=== PATIENT | female | born 1945 | race African-American/Black ===

== ENCOUNTER 2018-09-24 08:09 | Emergency (ER) | payer MEDICARE, BC ==
[~2018-09-24] VITALS: Ht 162.6 cm; Wt 82.0 kg
[2018-09-24] MEDS ORDERED: KETOROLAC 30MG/ML VIAL IV STA (08:27)
[2018-09-24 09:05] LABS: BASOPHILS % 1.1 % (0.0-2.0); EOSINOPHILS % 1.1 % (0.0-5.0); HEMATOCRIT. 40.9 % (36.0-48.0); HEMOGLOBIN. 13.3 g/dL (12.0-16.0); LYMPHOCYTES % 24.6 % (20.0-50.0); MEAN CORPUSCULAR HEMOGLOBIN 26.5 pg (28.0-32.0); MEAN CORPUSCULAR VOLUME 81.3 fL (81.0-99.0); MEAN PLATELET VOLUME 8.7 fl (7.4-10.4); MONOCYTES % 6.7 % (2.0-8.0); NEUTROPHILS % 66.5 % (40.0-76.0); PLATELET 230 x1000/uL (130-400); RED BLOOD CELL COUNT 5.03 mill/uL (4.2-5.4); RED CELL DISTRIBUTION WIDTH 16.5 % (11.6-14.6)
[2018-09-24 09:20] LABS: CHLORIDE 107 mEq/L (98-107)
[2018-09-24 09:22] LABS: CLARITY URINE CLEAR (CLEAR); COLOR URINE YELLOW (YELLOW); KETONES URINE NEGATIVE (NEGATIVE); LEUKOCYTE ESTERASE URINE 2+ (NEGATIVE); NITRITE URINE NEGATIVE (NEGATIVE); OCCULT BLOOD URINE NEGATIVE (NEGATIVE); PROTEIN URINE NEGATIVE (NEGATIVE); SPECIFIC GRAVITY URINE 1.017 (1.005-1.030); UROBILINOGEN URINE 0.2 E.U./dL (0.2-1.0)
[2018-09-24 09:56] LABS: PROTHROMBIN TIME 10.5 sec (9.6-11.0)
[2018-09-24 10:10] VITALS: BP 133/64
== END 2018-09-24 10:37 | disposition home or self-care (01) ==
LOC: ER 08:09
DX: N39.0 Urinary tract infection, site not specified (principal); I10 Essential (primary) hypertension; H40.9 Unspecified glaucoma; I69.351 Hemiplegia and hemiparesis following cerebral infarction affecting right dominant side
CPT/HCPCS: 36415; 74176; 80053; 81003; 83690; 85025; 85610; 96374; 99284; J1885

== ENCOUNTER 2022-12-04 17:25 | Emergency (ER) | payer OTHER ==
[~2022-12-04] VITALS: Ht 165.1 cm; Wt 82.0 kg
[2022-12-04 17:31] VITALS: O2SAT 99
[2022-12-04] MEDS ORDERED: KETOROLAC 30MG/ML VIAL IV STA (17:51)
[2022-12-04] MEDS ORDERED: KETOROLAC 30MG/ML VIAL IV NR (17:51)
[2022-12-04 18:18] LABS: BASOPHILS % 0.8 % (0.0-2.0); EOSINOPHILS % 1.8 % (0.0-5.0); LYMPHOCYTES % 24.5 % (20.0-50.0); MEAN CORPUSCULAR HEMOGLOBIN 26.9 pg (28.0-32.0); MEAN CORPUSCULAR HGB CONC 32.3 g/dL (31.0-37.0); MEAN CORPUSCULAR VOLUME 83.4 fL (81.0-99.0); MEAN PLATELET VOLUME 8.4 fl (7.4-10.4); MONOCYTES % 9.2 % (2.0-8.0); NEUTROPHILS % 63.7 % (40.0-76.0); PLATELET 217 x1000/uL (130-400); RED BLOOD CELL COUNT 4.08 mill/uL (4.2-5.4); WHITE BLOOD COUNT 9.3 x1000/uL (4.5-11.0)
[2022-12-04 18:20] LABS: DIFFERENTIAL COMMENT 1
[2022-12-04 18:27] LABS: INR 1.2; PROTHROMBIN TIME 12.4 sec (9.6-11.0)
[2022-12-04 18:41] LABS: CHLORIDE 107 mEq/L (98-107); INDEX HEMOLYSI 1 (1-3); INDEX ICTERIC 1 (1-4); INDEX LIPEMIC 1 (1-3); SODIUM 137 mEq/L (136-145)
[2022-12-04 18:49] LABS: ALANINE AMINOTRANSFERASE 22 IU/L (13-61); ALBUMIN 3.6 g/dL (3.4-5.0); ASPARTATE AMINOTRANSFERASE 19 IU/L (15-37); BILIRUBIN TOTAL 0.2 mg/dL (0.1-1.0); CALCIUM 9.3 mg/dL (8.5-10.1); CARBON DIOXIDE 24 mEq/L (21-32); CREATININE 1.5 mg/dL (0.6-1.3); GLUCOSE 135 mg/dL (70-105); PROTEIN TOTAL 7.8 g/dL (6.0-8.3); UREA NITROGEN BLOOD 14 mg/dL (7-21)
[2022-12-04 19:36] LABS: CLARITY URINE CLEAR (CLEAR); COLOR URINE YELLOW (YELLOW); GLUCOSE URINE NEGATIVE (NEGATIVE); KETONES URINE NEGATIVE (NEGATIVE); LEUKOCYTE ESTERASE URINE TRACE (NEGATIVE); NITRITE URINE NEGATIVE (NEGATIVE); OCCULT BLOOD URINE NEGATIVE (NEGATIVE); PH URINE 6.5 (4.5-8.0); PROTEIN URINE NEGATIVE (NEGATIVE); SPECIFIC GRAVITY URINE 1.007 (1.005-1.030); UROBILINOGEN URINE 0.2 E.U./dL (0.2-1.0)
[2022-12-04 19:42] LABS: BACTERIA URINE NONE SEEN; SQUAMOUS EPITHELIAL CELL URINE 1+ /lpf (RARE/1+); WBC URINE 0-2 /hpf (0-2); YEAST URINE NONE SEEN
[2022-12-04] MEDS ORDERED: NAPR-681 MT (20:52)
[2022-12-05] MEDS ORDERED: LABETALOL 5MG/ML SYR 20 MG/4 ML SYRINGE IV NR (05:30)
[2022-12-05] MEDS ORDERED: LABETALOL HCL VIAL 20 MG/4 ML VIAL IV ONE (05:30)
[2022-12-05 11:25] VITALS: BP 175/49; PULSE 63; RESP 16; TEMP 98
== END 2022-12-05 11:34 | disposition home or self-care (01) ==
LOC: ER 17:25
DX: R10.32 Left lower quadrant pain (principal); I10 Essential (primary) hypertension; Z86.73 Personal history of transient ischemic attack (TIA), and cerebral infarction without residual deficits
CPT/HCPCS: 99285; 74176; 96374; 80053; 81003; 83690; 85025; 85610; 36415; J1885; J3490

== ENCOUNTER 2023-06-27 13:42 | Inpatient (IN) | payer MEDICARE, OTHER ==
[~2023-06-27] VITALS: Ht 157.5 cm; Wt 63.0 kg
[~2023-06-27 13:42] MED LIST: NAPR-681 MT
[2023-06-27 14:24] LABS: BASOPHILS % 0.3 % (0.0-2.0); EOSINOPHILS % 0.6 % (0.0-5.0); HEMATOCRIT. 38.4 % (36.0-48.0); HEMOGLOBIN. 12.1 g/dL (12.0-16.0); LYMPHOCYTES % 13.4 % (20.0-50.0); MEAN CORPUSCULAR HEMOGLOBIN 26.8 pg (28.0-32.0); MEAN CORPUSCULAR HGB CONC 31.6 g/dL (31.0-37.0); MEAN CORPUSCULAR VOLUME 84.7 fL (81.0-99.0); NEUTROPHILS % 74.7 % (40.0-76.0); PLATELET 214 x1000/uL (130-400); RED BLOOD CELL COUNT 4.54 mill/uL (4.2-5.4); RED CELL DISTRIBUTION WIDTH 16.6 % (11.6-14.6); WHITE BLOOD COUNT 8.8 x1000/uL (4.5-11.0)
[2023-06-27 15:17] LABS: CHLORIDE 107 mEq/L (98-107); POTASSIUM 4.3 mEq/L (3.5-5.1); SODIUM 139 mEq/L (136-145)
[2023-06-27 15:18] LABS: CALCIUM 8.9 mg/dL (8.7-10.4); CARBON DIOXIDE 26 mEq/L (21-32)
[2023-06-27 15:23] LABS: CREATININE 1.1 mg/dL (0.6-1.0); GLUCOSE 100 mg/dL (70-105); UREA NITROGEN BLOOD 18 mg/dL (9-23)
[2023-06-27 15:25] LABS: ALANINE AMINOTRANSFERASE 39 IU/L (10-49); ALBUMIN 4.1 g/dL (3.2-4.8); ASPARTATE AMINOTRANSFERASE 76 IU/L (<34)
[2023-06-27 15:26] LABS: BILIRUBIN TOTAL 0.8 mg/dL (0.1-1.0); PROTEIN TOTAL 7.3 g/dL (6.0-8.3)
[2023-06-27] MEDS ORDERED: ONDANSETRON HCL 4MG/2ML INJ IV PRN (16:30)
[2023-06-27] MEDS ORDERED: MAGNESIUM/ALUMINUM HYDROXIDE/SIMETHICONE 30ML UDC PO PRN (16:30)
[2023-06-27] MEDS ORDERED: ACETAMINOPHEN 325MG TABLET PO PRN ×2 (16:30)
[2023-06-27] MEDS ORDERED: IPRATROPIUM/ALBUTEROL 0.5-3(2.5)MG/3ML NEB HHN PRN (16:30)
[2023-06-27] MEDS ORDERED: GUAIFENESIN 200MG/10ML SUGAR FREE UDC PO PRN (16:30)
[2023-06-27 17:48] LABS: PHOSPHORUS 2.7 mg/dL (2.5-4.9)
[2023-06-27] MEDS ORDERED: ENOXAPARIN 40MG/0.4ML SYR SUBCUT SCH (18:00)
[2023-06-27] MEDS: KETOROLAC 15MG/ML VIAL IV NR (18:03)
[2023-06-27] MEDS ORDERED: METOPROLOL TARTRATE 5MG/5ML VIAL IV PRN (18:45)
[2023-06-27] MEDS: METOPROLOL TARTRATE 25MG TABLET PO SCH (23:31)
[2023-06-27] MEDS: FAMOTIDINE 20MG TABLET PO SCH (23:31)
[2023-06-27] MEDS: ATORVASTATIN CALCIUM 40MG TABLET PO SCH (23:31)
[2023-06-27] MEDS: ENOXAPARIN 40MG/0.4ML SYR SUBCUT SCH (23:32)
[2023-06-28] VITALS: BP 170/76; PULSE 65; RESP 18; TEMP 98.6
[2023-06-28 00:13] VITALS: BP 170/76; PULSE 65; RESP 18; TEMP 98.6
[2023-06-28 01:58] LABS: CREATINE KINASE MB FRACTION 13.3 ng/mL (0.5-3.6)
[2023-06-28 01:59] LABS: TROPONIN I HIGH SENSITIVITY 26 ng/L (3.0-34)
[2023-06-28 02:00] LABS: CREATINE KINASE 1278 IU/L (34-145)
[2023-06-28 06:24] LABS: BASOPHILS % 0.6 % (0.0-2.0); EOSINOPHILS % 2.2 % (0.0-5.0); HEMATOCRIT. 34.5 % (36.0-48.0); HEMOGLOBIN. 11.2 g/dL (12.0-16.0); MEAN CORPUSCULAR HEMOGLOBIN 26.4 pg (28.0-32.0); MEAN CORPUSCULAR HGB CONC 32.6 g/dL (31.0-37.0); MEAN CORPUSCULAR VOLUME 80.9 fL (81.0-99.0); MEAN PLATELET VOLUME 8.2 fl (7.4-10.4); MONOCYTES % 12.3 % (2.0-8.0); NEUTROPHILS % 59.9 % (40.0-76.0); PLATELET 228 x1000/uL (130-400); RED BLOOD CELL COUNT 4.27 mill/uL (4.2-5.4); RED CELL DISTRIBUTION WIDTH 16.1 % (11.6-14.6); WHITE BLOOD COUNT 6.7 x1000/uL (4.5-11.0)
[2023-06-28 06:26] LABS: CHLORIDE 107 mEq/L (98-107); POTASSIUM 4.1 mEq/L (3.5-5.1); SODIUM 139 mEq/L (136-145)
[2023-06-28 06:27] LABS: CALCIUM 8.2 mg/dL (8.7-10.4); CARBON DIOXIDE 28 mEq/L (21-32)
[2023-06-28 06:32] LABS: CREATININE 0.9 mg/dL (0.6-1.0); GLUCOSE 125 mg/dL (70-105); TRIGLYCERIDE 49 mg/dL (0-150); UREA NITROGEN BLOOD 19 mg/dL (9-23)
[2023-06-28 06:33] LABS: LDL CHOLESTEROL 58 mg/dL (5-100)
[2023-06-28 06:34] LABS: ALANINE AMINOTRANSFERASE 34 IU/L (10-49); ALBUMIN 3.5 g/dL (3.2-4.8); ASPARTATE AMINOTRANSFERASE 59 IU/L (<34); CHOLESTEROL 122 mg/dL (<200); HDL CHOLESTEROL 46 mg/dL (>65)
[2023-06-28 06:35] LABS: BILIRUBIN TOTAL 0.5 mg/dL (0.1-1.0); PROTEIN TOTAL 5.9 g/dL (6.0-8.3)
[2023-06-28 06:36] LABS: T4 FREE 1.24 ng/dL (0.89-1.76)
[2023-06-28 06:37] LABS: THYROID STIMULATING HORMONE 1.06 uIU/mL (0.55-4.78)
[2023-06-28 06:58] LABS: HEPATITIS B SURFACE ANTIGEN NEGATIVE (Negative)
[2023-06-28 07:19] LABS: HEPATITIS C AB NON REACTIVE (Neg) (Negative)
[2023-06-28] MEDS ORDERED: HYDRALAZINE 20MG/ML VIAL IV PRN (07:45)
[2023-06-28 08:00] VITALS: BP 133/70; PULSE 93; RESP 19; TEMP 97.5
[2023-06-28] MEDS: LACTATED RINGERS 1,000 ML IV ONE (08:00)
[2023-06-28] MEDS ORDERED: HYDRALAZINE 10 MG in SODIUM CHLORIDE 0.9% 49.5 ML IV PRN (08:15)
[2023-06-28] MEDS: MULTIVITAMINS,THER W-MINERALS TABLET PO SCH (09:25)
[2023-06-28] MEDS: CLONIDINE HCL 0.1MG/24HR PATCH TD SCH (09:25)
[2023-06-28] MEDS: NIFEDIPINE XL 30MG TAB PO SCH (09:28)
[2023-06-28 12:00] VITALS: BP 152/75; PULSE 79; RESP 16; TEMP 97.2
[2023-06-28 16:00] VITALS: BP 135/56; PULSE 82; RESP 18; TEMP 97.5
[2023-06-28 20:00] VITALS: BP_SYST 112; BP_SYST 153; BP_DIAS 67; BP_DIAS 72; PULSE 84; PULSE 96; RESP 20; TEMP 98.1
[2023-06-28] MEDS: KETOROLAC 15MG/ML VIAL IV PRN (20:46)
[2023-06-29] VITALS: BP 138/65; PULSE 86; RESP 20; TEMP 97.9
[2023-06-29 04:00] VITALS: BP 137/66; PULSE 79; RESP 20; TEMP 97.5
[2023-06-29 07:47] LABS: BASOPHILS % 0.7 % (0.0-2.0); HEMATOCRIT. 36.1 % (36.0-48.0); HEMOGLOBIN. 11.6 g/dL (12.0-16.0); LYMPHOCYTES % 28.3 % (20.0-50.0); MEAN CORPUSCULAR HEMOGLOBIN 26.5 pg (28.0-32.0); MEAN CORPUSCULAR HGB CONC 32.1 g/dL (31.0-37.0); MEAN CORPUSCULAR VOLUME 82.7 fL (81.0-99.0); MEAN PLATELET VOLUME 8.4 fl (7.4-10.4); MONOCYTES % 9.1 % (2.0-8.0); NEUTROPHILS % 57.9 % (40.0-76.0); PLATELET 267 x1000/uL (130-400); RED BLOOD CELL COUNT 4.36 mill/uL (4.2-5.4); RED CELL DISTRIBUTION WIDTH 15.9 % (11.6-14.6); WHITE BLOOD COUNT 5.4 x1000/uL (4.5-11.0)
[2023-06-29 08:00] VITALS: BP 137/61; PULSE 82; RESP 20; TEMP 98.2
[2023-06-29 12:00] VITALS: BP 124/78; PULSE 76; RESP 20; TEMP 98.1
[2023-06-29 16:00] VITALS: BP 138/59; PULSE 75; RESP 19; TEMP 98.6
[2023-06-29] MEDS: DOCUSATE SODIUM 100MG CAPSULE PO PRN (18:45)
[2023-06-29 20:00] VITALS: BP 154/64; PULSE 91; RESP 18; TEMP 98.7
[2023-06-29] MEDS ORDERED: HALOPERIDOL LACTATE 5MG/ML VIAL IM ONE (20:45)
[2023-06-29] MEDS: ENOXAPARIN 40MG/0.4ML SYR SUBCUT SCH (21:24)
[2023-06-30] VITALS: BP 164/77; PULSE 97; RESP 18; TEMP 97.5
[2023-06-30 04:00] VITALS: BP 161/82; PULSE 83; RESP 20; TEMP 97.7
[2023-06-30 08:00] VITALS: BP 175/74; PULSE 86; RESP 19; TEMP 98.9
[2023-06-30 12:00] VITALS: BP 176/86; PULSE 67; RESP 19; TEMP 97.9
[2023-06-30] MEDS: CLONIDINE 0.1MG TABLET PO PRN (12:55)
[2023-06-30] MEDS: LOSARTAN 50 MG TABLET PO SCH (15:20)
[2023-06-30 15:52] VITALS: BP 145/14; PULSE 76; TEMP 98.3; O2SAT 99
[2023-06-30 16:00] VITALS: BP 145/74; PULSE 67; RESP 19; TEMP 97.9
[2023-07-04] MEDS ORDERED: LATA2.5D14 EACHEYE (00:08)
[2023-07-04] MEDS ORDERED: TIMO15DR11 EACHEYE (00:08)
== END 2023-06-30 18:51 | DRG 69 ==
LOC: ER 13:42 → 6EST 18:09
PROVIDERS: ADMIT Internal Medicine; ATTEND Internal Medicine
DX: G45.9 Transient cerebral ischemic attack, unspecified (principal); M62.82 Rhabdomyolysis; I69.351 Hemiplegia and hemiparesis following cerebral infarction affecting right dominant side; W18.30XA Fall on same level, unspecified, initial encounter; R29.6 Repeated falls; I48.91 Unspecified atrial fibrillation; I10 Essential (primary) hypertension; D64.9 Anemia, unspecified; E78.5 Hyperlipidemia, unspecified; R13.10 Dysphagia, unspecified; E66.9 Obesity, unspecified; H40.9 Unspecified glaucoma; M17.11 Unilateral primary osteoarthritis, right knee; S80.11XA Contusion of right lower leg, initial encounter; R32 Unspecified urinary incontinence; R53.81 Other malaise; R74.01 Elevation of levels of liver transaminase levels; Z90.710 Acquired absence of both cervix and uterus; Z79.899 Other long term (current) drug therapy; Z82.49 Family history of ischemic heart disease and other diseases of the circulatory system; Z68.25 Body mass index [BMI] 25.0-25.9, adult; Y93.89 Activity, other specified; Y92.89 Other specified places as the place of occurrence of the external cause; Y99.8 Other external cause status
CPT/HCPCS: 36415; 70551; 73502; 73560; 73610; 80053; 80061; 82550; 82553; 83735; 84100; 84439; 84443; 84484; 85025; 86705; 87340; 92610; 93005; 93306; 93970; 97162; 97166; 99285; J1650; J1885